=== PATIENT | male | born 1990 | race Caucasian/White ===

== ENCOUNTER 2017-04-20 12:13 | Emergency (ER) | payer MEDICARE, OTHER ==
[~2017-04-20] VITALS: Ht 185.4 cm; Wt 110.2 kg
[~2017-04-20 12:13] MED LIST: AMOX1XR PO; CODACE30 PO; FLUT.05NI; LORA1 PO; OXYACE5T PO; PROM25 PO; RXLORA1 PO; RXOXYACE PO
[2017-04-20 14:09] LABS: Influenza A Negative (NEGATIVE); Influenza B Negative (NEGATIVE)
[2017-04-20] MEDS ORDERED: PENVK500 PO (14:29)
[2017-04-20] MEDS ORDERED: IBUP800 PO (14:29)
== END 2017-04-20 14:38 | disposition home or self-care (01) ==
LOC: ER 12:13
PROVIDERS: Physician Assistant
DX: J02.9 Acute pharyngitis, unspecified (principal); B34.9 Viral infection, unspecified; F17.200 Nicotine dependence, unspecified, uncomplicated
CPT/HCPCS: 87081; 87430; 87804; 96372; 99283; J1100; J1885